=== PATIENT | female | born 1980 | race Caucasian/White ===

== ENCOUNTER 2017-06-08 10:45 | Emergency (ER) | payer OTHER ==
--- NOTE | 2017-06-08 12:35 | UC ---
Throat Pain/Nasal Tomi HPI - HPI Summary HPI Summary: nasal congestion x 3 days + cough , sinus pressure, no fever, no chills - History of Current Complaint Chief Complaint: UCRespiratory Stated Complaint: COUGH,SINUS Time Seen by Provider: 06/08/17 12:11 Hx Obtained From: Patient Hx Last Menstrual Period: 05/31/17 Onset/Duration: Gradual Onset, Lasting Days - 3, Still Present Severity: Moderate Cough: Nonproductive Associated Signs & Symptoms: Positive: Sinus Discomfort, Nasal Discharge. Negative: Dysphagia, FB Sensation, Drooling, Hoarseness, Fever, Rash - Allergies/Home Medications Allergies/Adverse Reactions: Allergies Allergy/AdvReac Type Severity Reaction Status Date / Time Penicillins Allergy Severe Airway Verified 06/08/17 12:16 Obstruction Home Medications: Home Medications Fluticasone NASAL SPRAY 50MCG* [Flonase NASAL SPRAY 50MCG*] 2 spray BOTH NARES DAILY 06/08/17 [History Confirmed 06/08/17] Hydroxychloroquine TAB* [Plaquenil TAB*] 200 mg PO DAILY 06/08/17 [History Confirmed 06/08/17] Magnesium Oxide-Cholecalcifero [Magnesium & Vitamin D3/Tu] 1 cap PO 06/08/17 [ History] PMH/Surg Hx/FS Hx/Imm Hx Previously Healthy: Yes - Surgical History Surgical History: Yes Surgery Procedure, Year, and Place: Right Wrist Ganglion, 2014, [facility] [place]; LEEP, 2009 , [place]; Right Carpal Tunnel, 2007, [place], Tubal Ligation, ~2005, [place] ; Appendectomy, 1997, [place] - Family History Known Family History: Positive: None Negative: Diabetes Family History: no cardio vascular issues in family lineage - Social History Alcohol Use: None Substance Use Type: None Smoking Status (MU): Light Every Day Tobacco Smoker Type: Cigarettes Amount Used/How Often: ~1/3 PPD Length of Time of Smoking/Using Tobacco: On and Off for 21 Years Have You Smoked in the Last Year: Yes Household Exposure Type: Cigarettes - Immunization History Most Recent Influenza Vaccination: Not the 2016/2016 Season Review of Systems Constitutional: Negative Skin: Negative Eyes: Negative ENT: Nasal Discharge, Sinus Congestion Respiratory: Cough Cardiovascular: Negative Gastrointestinal: Negative All Other Systems Reviewed And Are Negative: Yes Physical Exam Triage Information Reviewed: Yes Appearance: Well-Appearing, No Pain Distress, Well-Nourished Vital Signs: Initial Vital Signs Temp 99.2 F 06/08/17 12:20 Pulse 74 06/08/17 12:20 Resp 16 06/08/17 12:20 BP 112/73 06/08/17 12:20 Pulse Ox 100 06/08/17 12:20 Vital Signs Reviewed: Yes Eyes: Positive: Conjunctiva Clear ENT: Positive: Normal ENT inspection, Hearing grossly normal, Pharynx normal Neck: Positive: Supple, Nontender, No Lymphadenopathy Respiratory: Positive: Chest non-tender, Lungs clear, Normal breath sounds, No respiratory distress Cardiovascular: Positive: RRR, No Murmur, Pulses Normal Abdominal Exam: Normal Skin Exam: Normal Throat Pain/Nasal Course/Dx - Differential Dx/Diagnosis Provider Diagnoses: uri Discharge - Discharge Plan Condition: Stable Disposition: HOME Patient Education Materials: Upper Respiratory Infection (ED) Referrals: Traci Savage MD [Primary Care Provider] - If Needed
[2017-06-08 12:45] VITALS: BP 112/73
== END 2017-06-08 12:52 | disposition home or self-care (01) ==
LOC: UCCORT 10:45
DX: J06.9 Acute upper respiratory infection, unspecified (principal); Z88.0 Allergy status to penicillin; F17.210 Nicotine dependence, cigarettes, uncomplicated
CPT/HCPCS: 99211; G0463

== ENCOUNTER 2018-05-08 08:39 | Day surgery (SDC) | payer OTHER ==
[~2018-05-08 08:39] MED LIST: Buffered Lidocaine 0.9% SYRIN* 5 ML/SYR SYRINGE INTRADERM ONE; Dexamethasone IV* 4 MG/ML 1 ML (4 MG) IV SLOW PU ONE; Dexamethasone IV* 4 MG/ML 1 ML (4 MG) ONE; Famotidine IV* 10 MG/ML 2 ML (20 mg) IV ONE; Famotidine IV* 10 MG/ML 2 ML (20 mg) ONE
[2018-05-08] MEDS ORDERED: Clindamycin 900 MG IVPREMIX(* 900 MG/50 ML SDV IV ONE (08:46)
[2018-05-08] MEDS ORDERED: Propofol* 10 MG/ML 20 ML BTL IV PUSH ONE (11:13)
[2018-05-08] MEDS ORDERED: fentaNYL* 50 MCG/ML 2 ML VIAL (100 MCG VIAL) ONE (11:13)
[2018-05-08] MEDS ORDERED: Midazolam* 1 MG/ML 2 ML VIAL (2 MG) ONE (11:13)
[2018-05-08] MEDS ORDERED: Bupivacaine 0.5% SDV PF* 30ML VIAL ONE (11:20)
[2018-05-08] MEDS ORDERED: Lidocaine 1% INJ* 10 MG/ML 30 ML SDV ONE (11:20)
[2018-05-08] MEDS ORDERED: Bupivacaine 0.25% SDV* 30 ML ONE (11:20)
[2018-05-08 12:36] VITALS: BP 115/67
--- NOTE | 2018-05-08 21:34 | OP ---
DATE OF OPERATION: 05/08/18 - [facility] DATE OF : 78 SURGEON: Atilio Kennedy MD SPACE OFFICER: VIELKA Galeana. An assistant dean was needed for the procedure to aid in positioning of the arm and retraction. ANESTHESIOLOGIST: Preet Mckeon MD ANESTHESIA: Local MAC. PRE-OP DIAGNOSIS: Left posterior elbow mass consistent with a rheumatoid nodule. POST-OP DIAGNOSIS: Left posterior elbow mass consistent with a rheumatoid nodule. OPERATIVE PROCEDURE: Excision of left posterior elbow mass together with the olecranon bursa. INDICATIONS: Liliane is 38. She does have a history of rheumatoid arthritis. She has developed very symptomatic and painful nodule on the posterior elbow. She wanted to excise. We talked about risks and benefits including the risks of wound problems and a draining wound related to the bursa. She had wanted to proceed. ESTIMATED BLOOD LOSS: 2 mL. COMPLICATIONS: None. FINDINGS: As expected. DESCRIPTION OF PROCEDURE: Liliane was seen in the preoperative holding area. The correct side, site, and procedure were identified. We came back to the operating room. The arm was prepped and draped in the usual fashion. A time- out was performed. She had been positioned in the lateral decubitus position with the arm draped over an arm espinosa. The arm was exsanguinated with the Esmarch and the tourniquet inflated to 250 mmHg. I made a longitudinal midline incision over the posterior elbow of about 5 or 6 cm. The skin was from the underlying mass, which was adherent to the skin. The mass was released via marginal excision type fashion. The olecranon bursa was taken with the mass. The mass was excised in its entirety and handed off as a specimen. Everything was cleaned up until it was nice and clean. I irrigated out the wound. Skin was closed with 4-0 nylon suture. The marking had been infiltrated prior to making skin incision. The wound was appropriately dressed and a long arm splint was applied with the elbow in about 40 degrees of flexion. She was then woken up and taken to the recovery room in stable condition. [id number]/CPS #: [id number]
== END 2018-05-08 13:01 | disposition home or self-care (01) ==
LOC: OREAST 08:39
PROVIDERS: ATTEND Orthopaedic Surgery Hand Surgery
DX: M06.09 Rheumatoid arthritis without rheumatoid factor, multiple sites (principal); R22.32 Localized swelling, mass and lump, left upper limb; R00.2 Palpitations; Z72.0 Tobacco use; M06.9 Rheumatoid arthritis, unspecified; F41.8 Other specified anxiety disorders; J30.89 Other allergic rhinitis
CPT/HCPCS: 81025; 88305; J1100; J2250; J2704; J3010